=== PATIENT | female | born 1995 | race Caucasian/White ===

== ENCOUNTER 2019-01-12 16:37 | Emergency (ER) | payer OTHER ==
[~2019-01-12] VITALS: Ht 162.6 cm; Wt 79.8 kg
[2019-01-12 16:47] VITALS: Ht 162.6 cm; Wt 79.8 kg
[2019-01-12 17:47] VITALS: BP 131/79
== END 2019-01-12 17:48 | disposition home or self-care (01) ==
LOC: ED 16:37
DX: M54.41 Lumbago with sciatica, right side (principal); N39.0 Urinary tract infection, site not specified
CPT/HCPCS: J1885